=== PATIENT | male | born 1975 | race Caucasian/White ===

== ENCOUNTER 2018-12-13 12:50 | Emergency (ER) | payer OTHER ==
[2018-12-13 12:56] VITALS: TEMP 98.2; BMI 34.5
--- NOTE | 2018-12-13 13:24 | PDOC ---
History of Present Illness - General Chief Complaint: Injury Stated Complaint: HAND INJURY Time Seen by Provider: 12/13/18 13:24 History Source: Patient Exam Limitations: No Limitations - History of Present Illness Initial Comments: 12/13/18 13:54 Chidi Patterson is a 43y previously healthy M presenting with hand crush injury. At 1:15pm, got L hand caught in wheel of commercial A/C unit w subsequent pain and swelling. 3cm laceration to distal middle finger, tissue missing from distal thumb. Preserved sensation and wrist/finger movement. Denies numbness/paresthesia. Did not take any meds. Denies fever, chest pain, SOB, nausea/vomiting. Past History - Past Medical History Allergies/Adverse Reactions: Allergies Allergy/AdvReac Type Severity Reaction Status Date / Time No Known Allergies Allergy Verified 12/13/18 12:51 Home Medications: Ambulatory Orders Cephalexin [Keflex] 500 mg PO BID 5 Days #10 capsule 12/13/18 COPD: No - Suicide/Smoking/Psychosocial Hx Smoking History: Current every day smoker Number of Cigarettes Smoked Daily: 15 Information on smoking cessation initiated: No Review of Systems - Review of Systems Constitutional: No: Chills, Fever, Malaise HEENTM: No: Eye Pain, Ear Pain, Nose Pain, Throat Pain Respiratory: No: Cough, Shortness of Breath Cardiac (ROS): No: Chest Pain, Palpitations, Syncope ABD/GI: No: Abdominal Distended, Constipated, Diarrhea, Nausea, Vomiting : No: Burning, Dysuria, Discharge, Frequency, Flank Pain, Hematuria Musculoskeletal: No: Back Pain, Joint Pain, Joint Swelling, Muscle Pain Integumentary: Yes: Other (L hand sweling, bleeding from injury). No: Bruising , Dryness, Erythema, Rash Neurological: No: Headache, Numbness, Seizure, Tingling, Tremors Psychiatric: No: Anxiety, Depression, Stressors Endocrine: No: Excessive Sweating, Flushing, Intolerance to Cold, Intolerance to Heat Hematologic/Lymphatic: No: Anemia, Blood Clots, Easy Bleeding *Physical Exam - Vital Signs Last Vital Signs Temp Pulse Resp BP Pulse Ox 98.2 F 68 18 129/85 98 12/13/18 12:52 12/13/18 12:52 12/13/18 12:52 12/13/18 12:52 12/13/18 12:52 - Physical Exam General Appearance: Yes: Nourished, Appropriately Dressed, Mild Distress HEENT: positive: EOMI, TONY, Normal Voice, Hearing Grossly Normal. negative: Nasal Congestion, Rhinorrhea Respiratory/Chest: positive: Lungs Clear, Normal Breath Sounds. negative: Chest Tender, Respiratory Distress, Crackles, Rales, Rhonchi, Stridor, Wheezing Cardiovascular: positive: Regular Rhythm, Regular Rate, S1, S2. negative: Edema , Murmur Extremity: positive: Normal Capillary Refill Integumentary: positive: Swelling (2+ thenar eminence), Other (tender thenar eminence, missing tissue distal thumb, 3cm distal laceration L middle finger, normal sensation to touch kendra, bent ring on 4th digit, finger ROM limited d/t edema, cap refill present, 3+ radial pulses kendra). negative: Cyanotic Neurologic: positive: credit control administrator II-XII NML intact, Fully Oriented, Alert, Normal Response, Respond to painful stimul, Responsive. negative: Numbness, Confused, Disoriented Procedures - Laceration/Wound Repair Left Distal Dorsal Hand 3rd digit Wound Length: 2.6 to 5.0 cm Wound Explored: clean, no foreign body present Wound's Depth, Shape: into muscle Irrigated w/ Saline: Yes Betadine Prep: No Anesthesia: 1% Lidocaine Amount of Anesthetic (ccs): 3 Wound Debrided: minimal Wound Repaired With: Sutures Suture Size/Type: 5:0, nylon Number of Sutures: 5 Layer Closure: Yes Number of Deep Layer Sutures: 0 Sterile Dressing Applied: No (xeroform) Splint Applied: Yes Type of Splint Applied: thumb splica splint Sling Applied: No Medical Decision Making - Medical Decision Making 12/13/18 13:44 L hand XR shows 3rd digit tuft fracture, 1st proximal phalanx fracture elevate, ice - 1430 pt endorses worse hand pain/swelling, reduced finger ROM d/ t edema - concern for compartment syndrome plan digital block, suture middle finger laceration Chidi Patterson is a 43y previously healthy M presenting with hand crush injury. Neurovascular intact. L hand XR showed 3rd digit tuft fracture, 1st proximal phalanx fracture. Ice and elevated hand for swelling. Consulted hand ortho Yusuf SPARKS working with Dr Guerrier for possible compartment syndrome, fracture management. Told swelling will continue, no numbness/ paresthesia/normal cap refill lowers concern for compartment syndrome. Splint fingers, suture laceration, see tomorrow for f/u 5 sutures closed middle finger laceration. Wrapped middle finger, thumb w xeroform, placed thumb in thumb splint. D/c home w ortho f/u and 5 day keflex. *DC/Admit/Observation/Transfer Diagnosis at time of Disposition: Closed fracture dislocation of digit of hand Phalanx, proximal fracture of finger Qualifiers: Encounter type: initial encounter Finger: thumb Fracture type: closed Fracture alignment: displaced Laterality: left Qualified Code(s): S62.512A - Displaced fracture of proximal phalanx of left thumb, initial encounter for closed fracture - Discharge Dispostion Disposition: HOME Condition at time of disposition: Good Decision to Admit order: No - Prescriptions Prescriptions: Cephalexin [Keflex] 500 mg PO BID 5 Days #10 capsule - Referrals Referrals: ON STAFF,NOT [Primary Care Provider] - Nazario Glynn MD [Staff Physician] - - Patient Instructions Printed Discharge Instructions: DI for Laceration Repair, DI for Finger Fracture Additional Instructions: You were seen for a hand injury. You have fractures in your left middle finger and thumb. Your ring was cut off. Your middle finger laceration was sutured together and a thumb cast was placed. Please call and make an appointment to see Dr Glynn hand surgeon tomorrow. Please take your prescribed cephalexin twice a day for 5 days. Keep your finger and thumb dry for the next 24hrs. Come back to the ED in 7-10 days to remove your sutures. Come back to the ED if you have worsening hand pain, numbness, or cannot move your hand. - Post Discharge Activity
--- NOTE | 2018-12-13 13:56 | PDOC ---
Attending Attestation - Resident Resident Name: Addi Anna - HPI HPI: 12/13/18 13:50 Pt presents to the ED complaining of pain and swelling to the L hand after crushing his hand inside an air conditioning machine. Patient is complaining of moderate pain. Has laceration to the 4th digit and avulsion to the thumb. 12/13/18 13:55 - Physicial Exam PE: 12/13/18 13:56 Agree with resident exam. intact sensation, cap refill and radial pulses of the hand. + 2 cm laceration to the 4th digit and small avulsion to the thumb. Patient has full ROM at the DIP and PIP of all digits except the thumb. Patient has tense swelling extending across the thenar eminence into the webspace between the first and second digits. - Medical Decision Making 12/13/18 14:00 Pt presents to the ED complaining of crush injury to the hand. will repair the laceration on the patients 3rd digit. tetanus UTD. Will check xray to rule out fx. No current concern for compartment syndrome, but given extent of swelling, will ice, elevate and reassess.
[2018-12-13] MEDS ORDERED: LIDOCAINE HCL 1%, 10 MG/ML (50 mL VIAL) SQ ONE (15:22)
[2018-12-13] MEDS ORDERED: LIDOCAINE HCL 1%, 10 MG/ML (20ML VIAL) ONE (15:28)
[2018-12-13 17:32] VITALS: BP 140/75; PULSE 57
== END 2018-12-13 18:00 | disposition home or self-care (01) ==
LOC: JER 12:50
PROC: 0JQK0ZZ Repair Left Hand Subcutaneous Tissue and Fascia, Open Approach (ICD-10-PCS; principal; 2018-12-13)
PROC: 2W3HX1Z Immobilization of Left Thumb using Splint (ICD-10-PCS; 2018-12-13)
DX: S67.193A Crushing injury of left middle finger, initial encounter (principal); S67.02XA Crushing injury of left thumb, initial encounter; S62.512A Displaced fracture of proximal phalanx of left thumb, initial encounter for closed fracture; S62.603B Fracture of unspecified phalanx of left middle finger, initial encounter for open fracture; S61.213A Laceration without foreign body of left middle finger without damage to nail, initial encounter; W31.89XA Contact with other specified machinery, initial encounter; Y93.89 Activity, other specified; Y92.69 Other specified industrial and construction area as the place of occurrence of the external cause; Y99.0 Civilian activity done for income or pay
CPT/HCPCS: 73130-TC-LT-FY; 99282-25